=== PATIENT | female | born 1960 | race Caucasian/White ===

== ENCOUNTER 2018-03-26 09:26 | Emergency (ER) | payer OTHER ==
[~2018-03-26] VITALS: Ht 165.1 cm; Wt 102.5 kg
[~2018-03-26 09:26] MED LIST: BIOTIN800 MCG PO; BYSTOLIC10 MG PO; COCONUT OIL1000 MG PO; DICLOFENAC SODI75 MG PO; EXCEDRIN MIGRA1 EAC3; HYDROCHLOROTHIA25 MG PO; LINZESS PO; LOSARTAN POTAS100 MG PO; Linzess PO; MELOXICAM15 MG PO; MONTELUKAST SOD10 MG PO; PANTOPRAZOLE SO20 MG PO; RANITIDINE HCL150 MG PO; SUCRALFATE1 GM PO; ULTRAM 50MG50 MG PO; VITAMIN E400 UNI1 PO; ZOFRAN ODT8 MG PO; ZYRTEC10 M3 PO; [UNRECOGNIZED DRUG - OTHER] PO
[2018-03-26] MEDS ORDERED: ONDANSETRON ODT8 MG PO (10:22)
[2018-03-26] MEDS ORDERED: TESSALON PERLE100 MG PO (10:22)
[2018-03-26] MEDS ORDERED: PROAIR HFA INH8.5 GM INH (10:22)
[2018-03-26] MEDS ORDERED: TAMIFLU75 MG PO (10:22)
[2018-03-26 10:33] VITALS: BP 160/80
--- NOTE | 2018-03-26 11:00 | Diagnostic Imaging Report ---
EXAM: PA and lateral views of the chest. COMPARISON: Chest radiograph 05/02/2015, report only available. CLINICAL HISTORY: ^[id number] ^[id number] FINDINGS: Lines/tubes: None. Lungs: The lungs are well inflated. Mild central perivascular congestion. No consolidations. Pleura: There is no pleural effusion or pneumothorax. Heart and mediastinum: Mild enlargement of the cardiac silhouette. Bones and soft tissues: No acute bony abnormalities. IMPRESSION: Mild central pulmonary vascular congestion. No findings to suggest infection. Signed by: Dr. Cece Acosta M.D. on 03/26/2018 10:57 AM
== END 2018-03-26 10:35 | disposition home or self-care (01) ==
LOC: FSED 09:26
DX: R50.9 Fever, unspecified (principal); R05 Cough; J11.1 Influenza due to unidentified influenza virus with other respiratory manifestations; I10 Essential (primary) hypertension
CPT/HCPCS: 71046; 87400; 99283

== ENCOUNTER → 2020-04-17 | Outpatient (CLI) | payer OTHER ==
[~2020-04-17] MED LIST changes: +ONDANSETRON ODT8 MG PO; +PROAIR HFA INH8.5 GM INH; +TAMIFLU75 MG PO; +TESSALON PERLE100 MG PO
== END ==
LOC: RAD 08:47
PROVIDERS: ATTEND Internal Medicine
DX: R06.00 Dyspnea, unspecified (principal)
CPT/HCPCS: 93306

== ENCOUNTER 2020-09-06 14:48 | Outpatient (RCR) | payer OTHER | END 2020-09-07 | LOC: PT 14:48 | PROVIDERS: ATTEND Neurological Surgery | DX: M51.16 Intervertebral disc disorders with radiculopathy, lumbar region (principal) ==

== ENCOUNTER 2020-09-19 14:54 | Outpatient (RCR) | payer OTHER | END 2020-10-08 | LOC: PT 14:54 | PROVIDERS: ATTEND Neurological Surgery | DX: M51.16 Intervertebral disc disorders with radiculopathy, lumbar region (principal) | CPT/HCPCS: 97139 ==

== ENCOUNTER 2023-09-17 10:00 | Emergency (ER) | payer BC, OTHER ==
[~2023-09-17] VITALS: Ht 165.1 cm; Wt 122.0 kg
[2023-09-17 10:25] VITALS: TEMP 98.6
[2023-09-17 10:54] LABS: BASOPHILS % 0.4 % (0.0-1.0); EOSINOPHILS # (AUTO) 0.1 (0.0-0.4); EOSINOPHILS % 0.8 % (0.0-6.0); HEMATOCRIT 44.5 % (34.2-44.1); HEMOGLOBIN 14.8 g/dL (12.0-16.0); LYMPHOCYTES # (AUTO) 0.8 (1.0-3.2); LYMPHOCYTES % 6.9 % (18.0-39.1); MEAN CORPUSCULAR HEMOGLOBIN 29.7 pg (28-32); MEAN CORPUSCULAR HGB CONC 33.3 g/dL (31-35); MEAN CORPUSCULAR VOLUME 89.2 fL (81-99); MONOCYTES # (AUTO) 0.9 (0.2-0.8); MONOCYTES % 7.9 % (4.4-11.3); NEUTROPHILS # (AUTO) 9.4 (2.1-6.9); NEUTROPHILS % 83.6 % (38.7-80.0); PLATELET COUNT 253 x10e3/uL (140-360); RED BLOOD COUNT 4.99 x10e6/uL (3.6-5.1); RED CELL DISTRIBUTION WIDTH 13.2 % (11.7-14.4); WHITE BLOOD COUNT 11.18 x10e3/uL (4.8-10.8)
[2023-09-17] MEDS: METOCLOPRAMIDE HCL 10 MG/2ML VIAL IV ONE (10:57)
[2023-09-17] MEDS: ONDANSETRON HCL INJ 2MG/ML 2ML 2 MG/ML VIAL IV ONE (10:57)
[2023-09-17] MEDS: SODIUM CHLORIDE 0.9% 1000ML 1,000 ML IV SCH (10:58)
[2023-09-17] MEDS: KETOROLAC TROMETHAMINE 30 MG/ML VIAL IV ONE (10:58)
[2023-09-17 11:13] LABS: ANION GAP 18.7 mmol/L (8-16); CALCIUM 10.4 mg/dL (8.4-10.2); CREATININE, SERUM 1.37 mg/dL (0.57-1.11); POTASSIUM 3.7 mmol/L (3.5-5.1)
[2023-09-17 11:39] VITALS: PULSE 76; RESP 18
[2023-09-17] MEDS: DIPHENHYDRAMINE HCL 25 MG CAP PO ONE (11:42)
[2023-09-17 12:41] VITALS: BP 170/94; PULSE 73; RESP 18; O2SAT 100
== END 2023-09-17 12:42 | disposition home or self-care (01) ==
LOC: ER 10:08
DX: R51.9 Headache, unspecified (principal); I12.9 Hypertensive chronic kidney disease with stage 1 through stage 4 chronic kidney disease, or unspecified chronic kidney disease; N18.9 Chronic kidney disease, unspecified; E78.5 Hyperlipidemia, unspecified; K21.9 Gastro-esophageal reflux disease without esophagitis; M19.09 Primary osteoarthritis, other specified site; Z85.3 Personal history of malignant neoplasm of breast; Z96.651 Presence of right artificial knee joint
CPT/HCPCS: 36415; 70450; 80048; 85025; 99284; J1885; J2405; J2765; J7030